=== PATIENT | male | born 1960 | race African-American/Black ===

== ENCOUNTER 2016-12-21 23:18 | Emergency (ER) | payer SELFPAY ==
[~2016-12-21] VITALS: Ht 175.3 cm; Wt 74.8 kg
[2016-12-21] MEDS ORDERED: UNOBMED (23:25)
[2016-12-21] MEDS ORDERED: LORazepam 1mg tab ORAL ONE (23:45)
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
[2016-12-22] MEDS ORDERED: IBUPROFEN600 MG ORAL (01:05)
[2016-12-22 01:10] VITALS: BP 135/88
[2016-12-22 01:11] VITALS: BP 135/88
--- NOTE | 2016-12-22 09:53 | Diagnostic Imaging Report ---
Indication: Headache Technique: Contiguous 5 mm thick transaxial imaging of the head obtained in a Siemens Sensation [address] scanner. Soft tissue and bone windows generated. Total Dose length Product (DLP): [address] Dose Index Volume (CTDIvol): 70.38 mGy Comparison: none Findings: Area of low attenuation noted asymmetrically within the left occipital and posterior parietal region. No obvious sulcal effacement demonstrated. The findings may be due to mild edema. There is no obvious effacement of the left lateral ventricle or associated midline shift. Consider MRI for further evaluation. Small cystic left cerebellar focus measuring about 1-2 cm consistent with an old lacunar infarct noted. The ventricles and basal cisterns appear normal. There is no evidence of acute hemorrhage. Osseous structures are unremarkable. Impression: Left parietal occipital low attenuation without obvious mass effect, sulcal or ventricular effacement. This could be residual edema in association with a subacute or older CVA. Other possibilities are not excluded. Followup and clinical correlation recommended. Evaluation with MRI may be of benefit. A 1-2 cm old infarct in the left cerebellum. [facility] has communicated the preliminary results to the Emergency Department. Their findings are largely concordant with this report. The CT scanner at [facility] is accredited by the [employer] and the scans are performed using dose optimization techniques as appropriate to a performed exam including Automatic Exposure control.
== END 2016-12-22 01:10 | disposition home or self-care (01) ==
LOC: EDBD 23:18 → EMR 23:40
DX: G44.209 Tension-type headache, unspecified, not intractable (principal); I10 Essential (primary) hypertension; F43.0 Acute stress reaction; E11.9 Type 2 diabetes mellitus without complications; Z86.73 Personal history of transient ischemic attack (TIA), and cerebral infarction without residual deficits
CPT/HCPCS: 70450; 99284

== ENCOUNTER 2017-01-14 18:42 | Emergency (ER) | payer SELFPAY ==
[~2017-01-14] VITALS: Ht 172.7 cm; Wt 81.6 kg
[~2017-01-14 18:42] MED LIST: IBUPROFEN600 MG ORAL; UNOBMED
[2017-01-14 19:22] VITALS: BP 179/90
[2017-01-14 19:32] LABS: MEAN CORPUSCULAR HEMOGLOBIN 33.1 PG (27.0-31.0); MEAN CORPUSCULAR HGB CONC 36.5 G/DL (32.0-36.0); MEAN CORPUSCULAR VOLUME 91 FL (80-99); PLATELET COUNT 148 K/UL (150-450); RED BLOOD COUNT 3.99 M/UL (4.70-6.10); RED CELL DISTRIBUTION WIDTH 11.3 % (11.6-14.8); WHITE BLOOD COUNT 2.6 K/UL (4.8-10.8)
[2017-01-14 19:43] LABS: ALANINE AMINOTRANSFERASE 49 U/L (3-41); ALBUMIN/GLOBULIN RATIO 0.9 (1.0-2.7); ANION GAP 12 (5-15); ASPARTATE AMINO TRANSFERASE 68 U/L (5-40); CALCIUM 9.1 mg/dL (8.6-10.2); CARBON DIOXIDE 27 mEQ/L (20-30); CHLORIDE 100 mEQ/L (98-107); CREATININE 1.2 mg/dL (0.7-1.2); GLOMERULAR FILTRATION RATE > 60 mL/min (>60); HEMOLYSIS 6; SODIUM 139 mEQ/L (135-145); TOTAL PROTEIN 8.1 g/dL (6.6-8.7); TROPONIN I < 0.30 ng/mL (<=0.30)
[2017-01-14 19:53] LABS: CKMB 1.7 ng/mL (< 6.7)
[2017-01-14 20:04] LABS: APPEARANCE,URINE CLEAR; KETONES,URINE NEGATIVE (NEGATIVE); LEUKOCYTE ESTERASE ,URINE 1+ (NEGATIVE); NITRITE,URINE NEGATIVE (NEGATIVE); PH,URINE 6 (4.5-8.0); PROTEIN,URINE 2+ (NEGATIVE); UROBILINOGEN,URINE 12 MG/DL (0.0-1.0)
[2017-01-14 20:10] LABS: BACTERIA,URINE OCCASIONAL /HPF; ICTOTEST NEG; RBC,URINE 0-2 /HPF (0 - 0)
[2017-01-14 20:57] VITALS: BP 179/90
[2017-01-14 21:13] LABS: LYMPHOCYTES % (MANUAL) 46 % (20-45); NEUTROPHILS % (MANUAL) 34 % (45-75); PLATELET MORPHOLOGY NORMAL; TOTAL CELLS COUNTED 100
[2017-01-14 21:14] LABS: REACTIVE LYMPHOCYTES 1+
[2017-01-14 21:25] LABS: BAND NEUTROPHILS % (MANUAL) 0 % (0-8); BASOPHILS % (MANUAL) 0 % (0-2); EOSINOPHILS % (MANUAL) 0 % (0-3); PLATELET ESTIMATE ADEQUATE
--- NOTE | 2017-01-14 21:55 | Emergency Room Report ---
History of Present Illness General Chief Complaint: Altered Level of Consciousness Source: Patient, Significant Other Present Illness HPI 56-year-old male presents to ED for evaluation. Patient was brought in by "friend" who says patient appears more weak and sick. Last known well was 4-5 days ago. He says patient appears sick. Patient states he feels sick. Is not able to elaborate what is bothering him. Denies any chest pain or shortness of breath. Denies fevers or chills. Denies dizziness. No other aggravating relieving factors. Denies any other associated symptoms Allergies: Coded Allergies: No Known Allergies (Unverified , 12/21/16) Patient History Past Medical History: DM, HTN Past Surgical History: none Pertinent Family History: none Social History: Denies: smoking, alcohol use, drug use Immunizations: UTD Reviewed Nursing Documentation: PMH: Agreed, PSxH: Agreed Nursing Documentation-PMH Past Medical History: No History, Except For Hx Cardiac Problems: Yes - unspecified Hx Hypertension: Yes Hx Diabetes: Yes Review of Systems All Other Systems: negative except mentioned in HPI Physical Exam Vital Signs Date Time Temp Pulse Resp B/P (MAP) Pulse Ox O2 Delivery O2 Flow Rate FiO2 01/14/17 18:50 97.3 57 16 179/90 99 Room Air Sp02 EP Interpretation: reviewed, normal General Appearance: no apparent distress, alert, GCS 15, non-toxic Head: normocephalic, atraumatic Eyes: bilateral eye normal inspection, bilateral eye PERRL ENT: hearing grossly normal, normal pharynx, no angioedema, normal voice Neck: full range of motion, supple/symm/no masses Respiratory: chest non-tender, lungs clear, normal breath sounds, speaking full sentences Cardiovascular #1: regular rate, rhythm, no edema Cardiovascular #2: 2+ carotid (R), 2+ carotid (L), 2+ radial (R), 2+ radial (L) , 2+ dorsalis pedis (R), 2+ dorsalis pedis (L) Gastrointestinal: normal bowel sounds, non tender, soft, non-distended, no guarding, no rebound Rectal: deferred Genitourinary: normal inspection, no CVA tenderness Musculoskeletal: back normal, gait/station normal, normal range of motion, non- tender Neurologic: alert, oriented x3, responsive, motor strength/tone normal, sensory intact, speech normal Psychiatric: judgement/insight normal, memory normal, mood/affect normal, no suicidal/homicidal ideation Reflexes: 3+ bicep (R), 3+ bicep (L), 3+ tricep (R), 3+ tricep (L), 3+ knee (R) , 3+ knee (L) Skin: normal color, no rash, warm/dry, well hydrated Lymphatic: no adenopathy Medical Decision Making Diagnostic Impression: Primary Impression: Weakness ER Course Hospital Course 50-year-old male brought to ED for evaluation of weakness, altered. Differential diagnoses include: arrythmia, dehydration, intracranial bleed, seizure Clinical course Patient placed on stretcher. on quality assurance monitor chassis. After initial history and physical I ordered labs, EKG, chest Xray, IVFs, CT Brain labs reviewed- leukopenia noted, Hb/Hct stable, electrolytes ok, troponins negative, Utox negative CT Brain - no acute bleed, ? lesion Chest x-ray- no acute process EKG - NSr, no acute changes interpreted by me Upon reassessment patient states he feels better. Patient continues to say he feels "sick", will not elaborate further. Patient is stable vitals, is ambulating without difficulty. Alert oriented x3. Given the negative workup I believe patient can be discharged at this time. Patient gets upset and pulled out his IV, is requesting more food and time to sleep. The patient is stable for discharge and will be given his discharge papers I suspect patient is malingering I. I feel this is a highly complex case requiring extensive working including EKG/Rhythm strip, Xray/CT/US, Blood/urine lab work, repeat exams while in ED, and administration of strong opiates/narcotics for pain control, admission to hospital or close patient follow up. Diagnosis - weakness Stable and discharged to home. Followup with PMD. Return to ED if symptoms recur or worsen Labs Test 01/14/17 19:04 01/14/17 19:46 White Blood Count 2.6 K/UL (4.8-10.8) Red Blood Count 3.99 M/UL (4.70-6.10) Hemoglobin 13.2 G/DL (14.2-18.0) Hematocrit 36.2 % (42.0-52.0) Mean Corpuscular Volume 91 FL (80-99) Mean Corpuscular Hemoglobin 33.1 PG (27.0-31.0) Mean Corpuscular Hemoglobin Concent 36.5 G/DL (32.0-36.0) Red Cell Distribution Width 11.3 % (11.6-14.8) Platelet Count 148 K/UL (150-450) Mean Platelet Volume 7.0 FL (6.5-10.1) Neutrophils (%) (Auto) % (45.0-75.0) Lymphocytes (%) (Auto) % (20.0-45.0) Monocytes (%) (Auto) % (1.0-10.0) Eosinophils (%) (Auto) % (0.0-3.0) Basophils (%) (Auto) % (0.0-2.0) Differential Total Cells Counted 100 Neutrophils % (Manual) 34 % (45-75) Lymphocytes % (Manual) 46 % (20-45) Monocytes % (Manual) 20 % (1-10) Eosinophils % (Manual) 0 % (0-3) Basophils % (Manual) 0 % (0-2) Band Neutrophils 0 % (0-8) Reactive Lymphocytes 1+ Platelet Estimate Adequate Platelet Morphology Normal Red Blood Cell Morphology Normal Sodium Level 139 mEQ/L (135-145) Potassium Level 4.0 mEQ/L (3.4-4.9) Chloride Level 100 mEQ/L (98-107) Carbon Dioxide Level 27 mEQ/L (20-30) Anion Gap 12 (5-15) Blood Urea Nitrogen 17 mg/dL (7-23) Creatinine 1.2 mg/dL (0.7-1.2) Estimat Glomerular Filtration Rate > 60 mL/min (>60) Glucose Level 105 mg/dL (74-106) Calcium Level 9.1 mg/dL (8.6-10.2) Total Bilirubin 0.5 mg/dL (0.0-1.2) Aspartate Amino Transf (AST/SGOT) 68 U/L (5-40) Alanine Aminotransferase (ALT/SGPT) 49 U/L (3-41) Alkaline Phosphatase 87 U/L (40-129) Total Creatine Kinase 152 U/L (38-174) Creatine Kinase MB 1.7 ng/mL (< 6.7) Creatine Kinase MB Relative Index 1.1 Troponin I < 0.30 ng/mL (<=0.30) Total Protein 8.1 g/dL (6.6-8.7) Albumin 4.0 g/dL (3.5-5.2) Globulin 4.1 g/dL Albumin/Globulin Ratio 0.9 (1.0-2.7) Urine Color Lori Urine Appearance Clear Urine pH 6 (4.5-8.0) Urine Specific Kendall 1.020 (1.005-1.035) Urine Protein 2+ (NEGATIVE) Urine Glucose (UA) Negative (NEGATIVE) Urine Ketones Negative (NEGATIVE) Urine Occult Blood Negative (NEGATIVE) Urine Nitrite Negative (NEGATIVE) Urine Bilirubin 1+ (NEGATIVE) Urine Ictotest Neg Urine Urobilinogen 12 MG/DL (0.0-1.0) Urine Leukocyte Esterase 1+ (NEGATIVE) Urine RBC 0-2 /HPF (0 - 0) Urine WBC 5-10 /HPF (0 - 0) Urine Squamous Epithelial Cells None /LPF (NONE/OCC) Urine Bacteria Occasional /HPF (NONE) Urine Hyaline Casts 5-10 /LPF (NONE) Urine Opiates Screen Negative (NEGATIVE) Urine Barbiturates Screen Negative (NEGATIVE) Phencyclidine (PCP) Screen Negative (NEGATIVE) Urine Amphetamines Screen Negative (NEGATIVE) Urine Benzodiazepines Screen Negative (NEGATIVE) Urine Cocaine Screen Negative (NEGATIVE) Urine Marijuana (THC) Screen Negative (NEGATIVE) EKG Diagnostic Results Rate: normal Rhythm: NSR ST Segments: no acute changes ASA given to the pt in ED: No Rhythm Strip Diag. Results EP Interpretation: yes Rhythm: NSR, no PVC's, no ectopy Chest X-Ray Diagnostic Results Chest X-Ray Diagnostic Results : Chest X-Ray Ordered: Yes # of Views/Limited/Complete: 1 View Indication: Other - ams EP Interpretation: Yes Interpretation: no consolidation, no effusion, no pneumothorax, no acute cardiopulmonary disease Impression: No acute disease Electronically Signed by: Electronically signed by Kleber Eubanks MD CT/MRI/US Diagnostic Results CT/MRI/US Diagnostic Results : Imaging Test Ordered: CT head Impression no acute process, questionable lesion Last Vital Signs Date Time Temp Pulse Resp B/P (MAP) Pulse Ox O2 Delivery O2 Flow Rate FiO2 01/14/17 20:57 97.3 55 17 179/90 100 Room Air Status: improved Disposition: HOME, SELF-CARE Condition: Stable Patient Instructions: Weakness, [id number] KLEBER EUBANKS M.D. Jan 14, 2017 21:55
--- NOTE | 2017-01-15 10:43 | Diagnostic Imaging Report ---
Indication: Altered mental status Technique: Contiguous 5 mm thick transaxial imaging of the head obtained in a Siemens Sensation [address] scanner. Soft tissue and bone windows generated. Total Dose length Product (DLP): [address] Dose Index Volume (CTDIvol): 70.38, 0.15 mGy Comparison: 12/21/16 Findings: There is vasogenic appearing edema within the left posterior parietal and occipital region. This was seen previously but appears worse. There is more compression of the posterior aspect of the left lateral ventricle than on the prior occasion (for example image 17 of series 3 on the current study compared to image 23 series 3 of the previous study). Further evaluation of these findings with MRI was previously recommended. Same recommendation stands. 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 There is no acute hemorrhage. There is no midline shift. There is a well-circumscribed cystic focus in the left cerebellum unchanged from the last exam and probably representing an old lacunar infarct. There is generalized atrophy of the brain. Osseous structures appear unremarkable. The paranasal sinuses and mastoids appear clear as visualized. Impression: Worsening vasogenic edema in the left posterior parietal/occipital region with mass effect and compression of the posterior part of the left lateral ventricle. Discussion as above. Further evaluation with MRI with gadolinium is recommended. The CT scanner at [facility] is accredited by the [employer] and the scans are performed using dose optimization techniques as appropriate to a performed exam including Automatic Exposure control.
--- NOTE | 2017-01-15 10:58 | Diagnostic Imaging Report ---
Indication: Dyspnea Comparison: None A single view chest radiograph was obtained. Findings: The heart is mildly enlarged. The lungs are clear with normal vascularity. Costophrenic angles are sharp. Bones are slightly osteopenic. Impression: No acute disease
--- NOTE | 2017-01-16 19:06 | Cardiology Report ---
APPROVED REPORT EKG Measurement Heart [id number] Sinus bradycardia Left ventricular hypertrophy with repolarization abnormality Cannot rule out Septal infarct, age undetermined Abnormal ECG
== END 2017-01-14 20:57 | disposition home or self-care (01) ==
LOC: EMR 19:05
DX: R53.1 Weakness (principal); E11.9 Type 2 diabetes mellitus without complications; I10 Essential (primary) hypertension; R41.82 Altered mental status, unspecified; D72.819 Decreased white blood cell count, unspecified; I51.7 Cardiomegaly; M85.80 Other specified disorders of bone density and structure, unspecified site
CPT/HCPCS: 36415; 70450; 71010; 80053; 80300; 81003; 82550; 82553; 84484; 85007; 85025; 93005; 96374; 99284

== ENCOUNTER 2017-01-16 17:57 | Emergency (ER) | payer MEDICAID, OTHER ==
[~2017-01-16] VITALS: Ht 188 cm; Wt 77.1 kg
--- NOTE | 2017-01-16 19:03 | Emergency Room Report ---
History of Present Illness General Chief Complaint: Altered Mental Status Source: EMS (Loreto Cruz) Source: Medical Record, EMS (MODE MOJICA M.D.) Present Illness HPI [id number] BIBEMS from home for AMS Relative called EMR Patient not providing HPI - blinking eyes on me, making random movements States he has "heart problems." Not sure what medication he is on Denies any recent trauma Review of EMR from 01/14 shows "Worsening vasogenic edema in the left posterior parietal/occipital region with mass effect and compression of the posterior part of the left lateral ventricle. " (MODE MOJICA M.D.) Allergies: Coded Allergies: No Known Allergies (Unverified , 12/21/16) Patient History Past Medical History: unable to obtain Past Surgical History: unable to obtain Pertinent Family History: unable to obtain Social History: Denies: smoking, alcohol use, drug use Immunizations: UTD Reviewed Nursing Documentation: PMH: Agreed, PSxH: Agreed (MODE MOJICA M.D.) Nursing Documentation-PMH Hx Cardiac Problems: Yes - unspecified Hx Hypertension: Yes Hx Diabetes: Yes (Loreto Cruz P.AFay) Review of Systems All Other Systems: negative except mentioned in HPI (MODE MOJICA M.D.) Physical Exam Vital Signs Date Time Temp Pulse Resp B/P (MAP) Pulse Ox O2 Delivery O2 Flow Rate FiO2 01/16/17 17:50 98.2 68 15 174/88 99 Room Air (Loreto Cruz P.A.) Sp02 EP Interpretation: reviewed, normal General Appearance: normal inspection, well appearing, no apparent distress, alert, non-toxic Head: normocephalic, atraumatic Eyes: bilateral eye PERRL, bilateral eye EOMI ENT: normal ENT inspection, hearing grossly normal, normal voice Neck: normal inspection, full range of motion, supple, no bony tend Respiratory: normal inspection, lungs clear, normal breath sounds, no respiratory distress, no retraction, no wheezing Cardiovascular #1: regular rate, rhythm, no edema Gastrointestinal: normal inspection, normal bowel sounds, non tender, soft, no guarding, no hernia Genitourinary: no CVA tenderness Musculoskeletal: normal inspection, back normal, normal range of motion, Ben' s Sign negative Neurologic: normal inspection, alert, responsive, 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 Intermittent AMS/waxes and wanes as far as understanding/answering questions Psychiatric: normal inspection, judgement/insight normal, mood/affect normal Skin: normal inspection, normal color, no rash (MODE MOJICA M.D.) Procedures Critical Care Time Critical Care Time CC time 30 minutes CC time includes review of labs, CT from 2 days ago and today, d/w Dr Winter Neurosurgeon on [facility] (MODE MOJICA M.D.) Intubation Intubation : Consent: Emergent Intubation Method: orotracheal Tube Size (cm): 7.5 Medications: Etomidate, Rocuronium Breath Sounds after Intubation: equal Intubation Complications: no complications Post Intubation Xray: Yes Attempts: One Patient Tolerated: Well Complications: None (MODE MOJICA M.D.) Medical Decision Making PA Attestation Dr. Mojica is my supervising Physician whom patient management has been discussed with. (Loreto CruzAFay) Diagnostic Impression: Primary Impression: Altered mental status Qualified Codes: R41.82 - Altered mental status, unspecified Additional Impression: Vasogenic brain edema ER Course Continued altered mental status - waxes and wanes VSS. Afebrile Intubated for airway protection, mass effect/edema seen on CT 2 days prior IV Keppra given Mannitol given CT head unchanged from 2 days prior Neurosurgery consulted at [facility] Emergently intubated BP kept under 160SBP Dr Winter accepted transfer to Neuro ICU at 8pm Labs pending at time of rescue transfer to [facility] with LAFD (MODE MOJICA M.D.) EKG Diagnostic Results Rate: normal Rhythm: NSR ST Segments: no acute changes ASA given to the pt in ED: No (MODE MOJICA M.D.) Rhythm Strip Diag. Results EP Interpretation: yes Rate: 84 Rhythm: NSR, no PVC's, no ectopy (MODE MOJICA M.D.) Chest X-Ray Diagnostic Results Chest X-Ray Diagnostic Results : Chest X-Ray Ordered: Yes # of Views/Limited/Complete: 1 View Indication: Other - Tube placement EP Interpretation: Yes Interpretation: no consolidation, no effusion, no pneumothorax, no acute cardiopulmonary disease, other - ETT in satisfactory position Impression: No acute disease Electronically Signed by: Dr Mode Mojica MD (MODE MOJICA M.D.) Last Vital Signs Date Time Temp Pulse Resp B/P (MAP) Pulse Ox O2 Delivery O2 Flow Rate FiO2 01/16/17 17:50 98.2 68 15 174/88 99 Room Air (Loreto Cruz) Status: improved (MODE MOJICA M.D.) Disposition: ADMITTED INPATIENT Condition: Critical Loreto Cruz Jan 16, 2017 19:03 MODE MOJICA M.D. Jan 16, 2017 19:36
[2017-01-16 19:15] VITALS: BP 174/88
[2017-01-16] MEDS ORDERED: levETIRAcetam 1,000mg/NS100ml 100 ML IVPB ONE (19:45)
[2017-01-16 20:17] LABS: MEAN CORPUSCULAR HEMOGLOBIN 32.7 PG (27.0-31.0); MEAN CORPUSCULAR HGB CONC 35.5 G/DL (32.0-36.0); MEAN CORPUSCULAR VOLUME 92 FL (80-99); MEAN PLATELET VOLUME 7.2 FL (6.5-10.1); PLATELET COUNT 138 K/UL (150-450); RED BLOOD COUNT 3.47 M/UL (4.70-6.10); RED CELL DISTRIBUTION WIDTH 11.3 % (11.6-14.8); WHITE BLOOD COUNT 2.3 K/UL (4.8-10.8)
[2017-01-16] MEDS ORDERED: Tubing IV Cassette IV ONE (20:17)
[2017-01-16] MEDS ORDERED: Propofol 200mg/20ml IV ONE (20:30)
[2017-01-16] MEDS ORDERED: MANNITOL IV ONE (20:30)
[2017-01-16 20:33] LABS: ANION GAP 10 (5-15); CALCIUM 8.9 mg/dL (8.6-10.2); CARBON DIOXIDE 27 mEQ/L (20-30); CHLORIDE 101 mEQ/L (98-107); CREATININE 1.2 mg/dL (0.7-1.2); GLOMERULAR FILTRATION RATE > 60 mL/min (>60); HEMOLYSIS 5; POTASSIUM 4.1 mEQ/L (3.4-4.9); SODIUM 138 mEQ/L (135-145)
[2017-01-16 20:40] VITALS: BP 230/127
[2017-01-16] MEDS ORDERED: MANNITOL 25% IVP ONE (21:00)
[2017-01-16] MEDS ORDERED: MANNITOL 25% IV ONE (21:00)
[2017-01-16 21:32] LABS: ANISOCYTOSIS 1+; BAND NEUTROPHILS % (MANUAL) 1 % (0-8); BASOPHILS % (MANUAL) 1 % (0-2); EOSINOPHILS % (MANUAL) 2 % (0-3); HYPOCHROMASIA 1+; LYMPHOCYTES % (MANUAL) 48 % (20-45); NEUTROPHILS % (MANUAL) 31 % (45-75); PLATELET ESTIMATE DECREASED; PLATELET MORPHOLOGY NORMAL; TOTAL CELLS COUNTED 100
--- NOTE | 2017-01-17 08:56 | Diagnostic Imaging Report ---
Indications: Altered mental status Technique: Spiral acquisitions obtained through the brain. Angled axial and coronal 5 x 5 mm slices were reconstructed. Total dose length product 1340 mGycm. CTDI vol(s) 70 mGy. Dose reduction achieved using automated exposure control Comparison: 01/14/2017 Findings: Again demonstrated is fairly extensive vasogenic edema in the left posterior parietal, temporal, and occipital lobes. This results in mild mass effect, mostly attenuation of the posterior body and the atrium occipital horn of the left lateral ventricle, as well as attenuation of the adjacent sulci. No midline shift is evident. No acute hemorrhage. There is an old infarct in the left cerebellar hemisphere. No new edema. Visualized orbits and sinuses are unremarkable. The mastoids are clear. Impression: Extensive vasogenic edema in the left posterior parietal, temporal, and occipital lobes unchanged since prior exam of 2 days earlier. Resultant local mass effect, as described. Most likely reflects underlying mass lesion; other possibilities include infection or noninfectious inflammatory process. Consider contrast MRI for further evaluation as clinically indicated No acute hemorrhage Old old left cerebellar infarct, as described This agrees with the preliminary interpretation provided overnight by Dr. Garcia The CT scanner at [facility] is accredited by the [employer] and the scans are performed using protocols designed to limit radiation exposure to as low as reasonably achievable to attain images of sufficient resolution adequate for diagnostic evaluation.
== END 2017-01-16 20:40 | disposition short-term general hospital (02) ==
LOC: EDBD 17:57 → EMR 19:59
DX: R41.82 Altered mental status, unspecified (principal); G93.6 Cerebral edema; I10 Essential (primary) hypertension; E11.9 Type 2 diabetes mellitus without complications
CPT/HCPCS: 31500; 36415; 51702; 70450; 71010; 80048; 85007; 85025; 94002; 96365; 96375; 99291; J0360; J1953; J2150; J2704